=== PATIENT | female | born 1990 ===

== ENCOUNTER 2024-08-13 16:32 | Outpatient (REF) | payer MEDICAID, SELFPAY | END 2024-08-13 16:33 | disposition home or self-care (01) | LOC: LBN 16:32 | PROVIDERS: Visit Provider Nurse Practitioner Family | DX: N30.01 Acute cystitis with hematuria (principal) | CPT/HCPCS: 87086 ==

== ENCOUNTER 2024-08-16 01:13 | Outpatient (CLI) | payer MEDICAID, SELFPAY ==
--- NOTE | 2024-08-16 14:45 | DI.US_ITS ---
Exam(s) US PELVIS TRANSVAGINAL EXAM: US PELVIS TRANSVAGINAL CLINICAL HISTORY: LLQ PAIN,R10.32. TECHNIQUE: Transabdominal and transvaginal pelvic ultrasound was performed using standard protocol. COMPARISON: No exams were available for comparison FINDINGS: UTERUS: Position: Anteverted. Size: 8.7 long by 3.3 AP by 3.8 transverse cm Endometrium: 0.7 cm. Normal for patient's menstrual status. There is a small amount of fluid in the e ndometrial canal. Myometrium: Unremarkable. Cervix: Nabothian cysts are present. OVARIES: Right: 2.9 x 3 x 1.5 cm Cyst or mass: No suspicious cystic or solid masses. Left: 2.6 x 2.3 x 2.8 cm Cyst or mass: No suspicious cystic or solid masses. DOPPLER: Color: Symmetric and uniform flow to both ovaries. CUL-DE-SAC: Free fluid: Trace amount of free fluid in the cul-de-sac which is likely physiologic. Other: None. IMPRESSION: 1. Normal-appearing uterus with endometrial stripe within normal limits. 2. Unremarkable bilateral ovaries. DATA REPOSITORY:
== END 2024-08-16 01:33 ==
LOC: DI 01:13
PROVIDERS: Visit Provider Nurse Practitioner Family
DX: R10.32 Left lower quadrant pain (principal)
CPT/HCPCS: 76830; 76856